=== PATIENT | female | born 1990 | race Caucasian/White ===

== ENCOUNTER 2016-08-17 19:43 | Emergency (ER) | payer OTHER ==
[~2016-08-17] VITALS: Ht 165.1 cm; Wt 63.5 kg
[2016-08-17] MEDS ORDERED: INSUH10VL SC (19:54)
[2016-08-17] MEDS ORDERED: ORTHTAB5 PO (19:54)
[2016-08-17] MEDS ORDERED: INSULANT SC ×2 (19:54)
[2016-08-17 20:35] LABS: CONTROL LINE UCG INT CTR LINE PRESENT
[2016-08-17 20:35] LABS: BASO % 0.4 % (0.0-1.0); EOS # 0.1 K/mm3 (0.0-0.50); EOS % 0.9 % (0.0-3.0); LARGE UNSTAINED CELL # 0.1 K/mm3 (0.0-0.4); LYMPH # 2.4 K/mm3 (1.5-6.5); LYMPH % 19.4 % (24.0-44.0); MEAN CORPUSCULAR HEMOGLOBIN 28.3 pg (27.0-33.0); MEAN CORPUSCULAR VOLUME 85.9 fl (80.0-96.0); MONO # 0.6 K/mm3 (0.0-0.8); MONO % 5.2 % (0.0-5.0); NEUTROPHILS % 73.2 % (36.0-66.0); PLATELET COUNT, AUTOMATED 276 k/mm3 (150-450); RED CELL DISTRIBUTION WIDTH 12.1 % (11.5-14.5); WHITE BLOOD COUNT 12.3 K/mm3 (4.0-10.0)
[2016-08-17 20:49] LABS: ANION GAP 8 MEQ/L (8-16); BLOOD UREA NITROGEN 12 MG/DL (7-18); CALCIUM LEVEL 9.1 MG/DL (8.5-10.1); CARBON DIOXIDE LEVEL 31 MEQ/L (21-32); CHLORIDE LEVEL 101 MEQ/L (98-107); CREATININE FOR GFR 0.91 MG/DL (0.55-1.02); GLOMERULAR FILTRATION RATE > 60.0 (>60); GLUCOSE, FASTING 188 MG/DL (70-105); POTASSIUM SERUM 3.9 MEQ/L (3.5-5.1); SODIUM LEVEL 140 MEQ/L (136-145)
[2016-08-17] MEDS ORDERED: BACTRIM 160MG/800MG DS TAB PO ONE (21:00)
--- NOTE | 2016-08-17 21:40 | REPUSA ---
Clinical history: flank pain. Findings: The urinary bladder appears unremarkable. No urinary bladder masses are seen. The right kid aurelio measures 11.4 x 5.8 x 4.4 cm. The left kidney measures 10.6 x 4.8 x 6.3 cm. The kidneys demonstr ate normal echotexture and echogenicity. There is no evidence of hydronephrosis or nephrolithiasis. N o renal masses are seen. No free fluid is appreciated. Impression: Unremarkable ultrasound examination of the kidneys.
[2016-08-17] MEDS ORDERED: BACT800T5 PO (22:00)
[2016-08-17 22:12] VITALS: BP 132/71
== END 2016-08-17 22:15 | disposition home or self-care (01) ==
LOC: M ED 20:38
DX: N12 Tubulo-interstitial nephritis, not specified as acute or chronic (principal); E10.9 Type 1 diabetes mellitus without complications; Z79.4 Long term (current) use of insulin

== ENCOUNTER 2016-08-21 11:15 | Inpatient (IN) | payer OTHER ==
[~2016-08-21] VITALS: Ht 165.1 cm; Wt 59.0 kg
[2016-08-21] MEDS: ENOXAPARIN 40 MG/0.4 ML SYRINGE (J1650) SC SCH (09:00)
[2016-08-21] MEDS: PANTOPRAZOLE 40MG INJ (PROTONIX) (C9113) IV SCH (09:00)
[~2016-08-21 11:15] MED LIST: BACT800T5 PO; INSUH10VL SC; INSULANT SC; ORTHTAB5 PO
[2016-08-21] MEDS ORDERED: ONDANSETRON 4MG/2ML VIAL (J2405) IV ONE ×2 (12:15→13:15)
[2016-08-21] MEDS ORDERED: NS 1,000 ML IV ONE ×2 (12:15→14:00)
[2016-08-21 12:17] LABS: BASO % 0.1 % (0.0-1.0); EOS % 0.1 % (0.0-3.0); LARGE UNSTAINED CELL # 0.1 K/mm3 (0.0-0.4); LARGE UNSTAINED CELL % 0.7 % (0.0-4.0); LYMPH # 0.4 K/mm3 (1.5-6.5); LYMPH % 2.1 % (24.0-44.0); MEAN CORPUSCULAR HGB CONC 31.5 g/dl (32.0-36.5); MEAN CORPUSCULAR VOLUME 92.3 fl (80.0-96.0); MONO # 0.5 K/mm3 (0.0-0.8); MONO % 2.9 % (0.0-5.0); NEUTROPHILS # 17.2 K/mm3 (1.8-7.7); NEUTROPHILS % 94.1 % (36.0-66.0); PLATELET COUNT, AUTOMATED 280 k/mm3 (150-450); RED CELL DISTRIBUTION WIDTH 12.7 % (11.5-14.5); WHITE BLOOD COUNT 18.3 K/mm3 (4.0-10.0)
[2016-08-21 12:32] LABS: CONTROL LINE HCG INT CTR LINE PRESENT
[2016-08-21 12:38] LABS: ALBUMIN 3.4 GM/DL (3.2-5.2); ALBUMIN/GLOBULIN RATIO 0.55 (1.00-1.93); ALKALINE PHOSPHATASE 129 U/L (45-117); ALT/SGPT 18 U/L (12-78); AMYLASE 11 U/L (25-115); ANION GAP 23 MEQ/L (8-16); AST/SGOT 9 U/L (15-37); BILIRUBIN,DIRECT < 0.1 MG/DL (0.0-0.2); BILIRUBIN,TOTAL 0.5 MG/DL (0.2-1.0); BLOOD UREA NITROGEN 29 MG/DL (7-18); CALCIUM LEVEL 10.4 MG/DL (8.5-10.1); CARBON DIOXIDE LEVEL 9 MEQ/L (21-32); CHLORIDE LEVEL 95 MEQ/L (98-107); CREATININE FOR GFR 1.47 MG/DL (0.55-1.02); GLOMERULAR FILTRATION RATE 46.9 (>60); SODIUM LEVEL 127 MEQ/L (136-145); TOTAL PROTEIN 9.6 GM/DL (6.4-8.2)
[2016-08-21 12:45] LABS: GLUCOSE, FASTING 514 MG/DL (70-105)
[2016-08-21] MEDS ORDERED: INSULIN HUMAN REGULAR 100 UNITS in NS 99 ML IV SCH (12:52)
[2016-08-21 12:53] LABS: YEAST LIKE CELL URINE AUTO SMALL
[2016-08-21] MEDS ORDERED: INSULIN IV RATE CHANGE DOCUMENTATION ML/HR XX SCH (13:00)
[2016-08-21] MEDS ORDERED: HumuLIN R (REGULAR) INSULIN (NovoLIN R) **100U/ML** PER UNIT IV ONE (13:00)
--- NOTE | 2016-08-21 13:30 | REP ---
Portable chest: Single view. History: Than a ketoacidosis. Comparison study: No comparison study. Findings: The lungs are well inflated and clear. Pleural angles are sharp. Heart size is normal. Pulmonary vasculature is not increased. No significant bony abnormality. Impression: No active disease. Signed by Wilmer Nelson MD 08/21/2016 01:22 P
--- NOTE | 2016-08-21 13:55 | REP ---
CT STUDY ABDOMEN PELVIS WITHOUT IV OR ORAL CONTRAST: HISTORY: Abdominal pain, diabetic ketoacidosis. Right-sided abdominal pain. Comparison renal sonography August 17, 2016 showed no abnormality. FINDINGS: Digital scout sniper radiograph shows an unremarkable bowel gas pattern. The lung bases are clear. The liver and spleen are normal in size homogeneous in texture. Gallbladder and pancreas are unremarkable. No adrenal lesion is seen. The right kidney appears slightly swollen and there is some thickening in Gerota's fascia on the right consistent with perinephric edema. No hydronephrosis is seen. No ureteral or intrarenal calculus is observed. Changes raise the question of a right-sided pyelonephritis. Small and large intestinal bowel loops are normal. Normal caliber aorta is seen. No retroperitoneal mass or adenopathy is seen. The appendix is not confidently identified but there is no inflammatory change to suggest appendicitis adjacent to the cecum. Small and large bowel loops are otherwise unremarkable. There is a 2.7 cm cystic area in the left ovary. Urinary bladder is unremarkable. No abdominal wall defect is seen. No bony destructive lesion seen. IMPRESSION: Subtle swelling right kidney perinephric stranding question pyelonephritis. No calculus or obstruction seen. Signed by Wilmer Nelson MD 08/21/2016 04:47 P
[2016-08-21] MEDS ORDERED: IBUP200C PO (13:57)
[2016-08-21] MEDS ORDERED: NITR100C2 PO (13:58)
[2016-08-21] MEDS ORDERED: MACR100C3 PO (13:58)
[2016-08-21 14:04] VITALS: BP 133/71
[2016-08-21] MEDS: NS 1,000 ML IV SCH ×2 (14:35→22:33)
[2016-08-21 14:38] VITALS: BP 131/67
[2016-08-21] MEDS ORDERED: ONDANSETRON 4 MG TAB (S0181) PO PRN (14:45)
[2016-08-21] MEDS: INSULIN HUMAN REGULAR 100 UNITS in NS 99 ML IV SCH (14:52)
[2016-08-21 14:58] VITALS: BP 134/73
--- NOTE | 2016-08-21 15:31 | HPEPDOC ---
Medical History and Physical Date of Admission Aug 21, 2016 at 13:56 History and Physical ATTENDING: Dr. Curry PCP: Claudia CC: Vomiting HPI: 25yoF with a past medical history significant for IDDM, seen in ED 08/17/16 and treated for pyelonephritis with oral Bactrim. She was subsequently changed to oral Macrobid related to sensitivity results. Pt states has had vomiting and excessive thirst yesterday and today. She states she has been drinking a lot. She has felt generally fatigued. She states she checked her blood sugar once yesterday and reports it was 197. She reports right sided abdominal discomfort and right-sided flank discomfort. She denies dysuria, hematuria, some frequency and urgency. Denies any fevers, chills, SOLIS, CP, SOB, cough, palpitations, N/V/D or changes in bowel or bladder habits. Upon presentation to the hospital the patient was found to have DKA likely secondary to pyelonephritis, thus the hospitalist team was consulted. PMHx: IDDM PSHX: Denies SOCHX: Resides in: [facility] Marital Status: Kids: None Employment: Unemployed Tobacco use: Denies ETOH: Denies Illicit Drugs: Denies Recent travel: Denies Advanced directives: None FAMHX: Mother: Alive, well Father: Alive, well Siblings: One brother Alive, well Children: None Unexpected deaths due to medical reasons: None. ROS: As noted in HPI, otherwise 11pt ROS of systems reviewed and unremarkable. PE: GEN: 25yoF, appears stated age. ill appearing. Alert and oriented x 3. Pleasant , interactive. HEENT: Normocephalic, atraumatic. Pupils are equal, round, and reactive to light. Extraocular movements are intact. No nystagmus appreciated. Sclera are nonicteric. Conjunctiva without injection. Nose midline. Nasal turbinates without bogginess. EACs both patent BL. TMs both visualized and durand with good cone of light, no bulging or erythema. No facial asymmetry. Dry mucous membranes. Dentition fair. Pharynx pink and dry. Neck supple, trachea midline. No lymphadenopathy or thyromegaly appreciated. CHEST: Regular rate and rhythm, +S1, +S2 LUNGS: Clear to auscultation bilaterally. No wheezes, rales, or rhonchi. Breathing appears symmetric and easy. Patient is speaking in full sentences. No accessory muscle use. ABD: Flat, soft, TTP RLQ, non-distended. +Bowel sounds throughout. No rebound or guarding. Right costovertebral angle tenderness. EXT: Pulses 2+ bilaterally dorsalis pedis and radial. No lower extremity edema appreciated. SKIN: [place], dry, warm. Capillary refill <2sec. No rashes. NEURO: Alert and oriented x 3. Cranial nerves III-XII are intact. No focal deficits appreciated. CXR: No active disease. Renal U/S 08/17/16 Unremarkable ultrasound examination of the kidneys CT: Abdomen and pelvis Subtle swelling right kidney perinephric stranding question pyelonephritis. No calculus or obstruction seen. BLOOD CULTURES: Pending Urine culture pending Urine culture from 08/19/16 indicates Escherichia coli A&P: 25yoF with a past medical history significant for IDDM, seen in ED and treated for pyelonephritis with oral Bactrim. She was subsequently changed to oral Macrobid related to sensitivity results. Pt states has had vomiting and excessive thirst yesterday and today. She states she has been drinking a lot. She has felt generally fatigued. The patient will be admitted to ICU for at least [address] Curry's service. 1. DKA. Likely secondary to pyelonephritis. ICU admission. IV fluid bolus in ED. IV fluids at 150 mL per hour. IV Insulin. BMP Q2hr, Monitor mag/Phos. Cardiac markers pending. 2. Pyelonephritis. CT indicates no calculus or obstruction. Urine culture from indicates Escherichia coli. This is sensitive to Rocephin therefore Rocephin 1 g IV every 24 hours has been ordered. Urine culture pending. Blood culture 2 pending. IV fluids as above. Repeat lactic acid pending. 3. N/V. Zofran prn. 4. IDDM. Hgb A1c 9.2. DVT prophylaxis. Lovenox The patient is a Full code. Vital Signs Vital Signs Date Time Temp Pulse Resp B/P Pulse Ox O2 Delivery O2 Flow Rate FiO2 08/21/16 14:54 99.0 20 08/21/16 14:45 106 99 08/21/16 14:38 131/67 08/21/16 11:15 Room Air Laboratory Data Labs 24H Laboratory Tests 2 08/21/16 12:06: Aspartate Amino Transf (AST/SGOT) 9L, Alanine Aminotransferase (ALT/SGPT) 18, Alkaline Phosphatase 129H, Total Bilirubin 0.5, Direct Bilirubin < 0.1, Albumin 3.4, Albumin/Globulin Ratio 0.55L, Amylase Level 11L, Anion Gap 23H, White Blood Count 18.3H, Red Blood Count 4.93, Hemoglobin 14.3, Hematocrit 45.5, Mean Corpuscular Volume 92.3, Mean Corpuscular Hemoglobin 29.0, Mean Corpuscular Hemoglobin Concent 31.5L, Red Cell Distribution Width 12.7, Platelet Count 280, Neutrophils (%) (Auto) 94.1H, Lymphocytes (%) (Auto) 2.1L, Monocytes (%) (Auto) 2.9, Eosinophils (%) (Auto) 0.1, Basophils (%) (Auto) 0.1, Neutrophils # (Auto) 17.2H, Lymphocytes # (Auto) 0.4L, Monocytes # (Auto) 0.5, Eosinophils # (Auto) 0.0, Basophils # (Auto) 0.0, Calcium Level 10.4H, Estimated Mean Plasma Glucose 217H, Glomerular Filtration Rate 46.9L, Hemoglobin A1c 9.2H, Human Chorionic Gonadotropin, Qual NEGATIVE, Lactic Acid Level 2.5*H, Large Unclassified Cells # 0.1, Large Unclassified Cells % 0.7, Lipase 56L, Total Protein 9.6H 08/21/16 12:28: Urine Amorphous Sediment SMALLH, Urine Appearance HAZY, Urine Color STRAW, Urine pH 5.0, Urine Specific [place] 1.022, Urine Protein 1+H, Urine Glucose (UA ) 3+H, Urine Ketones 2+H, Urine Urobilinogen 0.2, Urine Bilirubin NEGATIVE, Urine Leukocyte Esterase NEGATIVE, Urine Bacteria (Auto) 3+H, Urine Blood 1+H, Urine Calcium Carbonate Cryst(Auto) , Urine Calcium Oxalate Cryst (Auto) , Urine Calcium Phosphate Hannah (Auto) , Urine Cellular Casts , Urine Cystine Crystals , Urine Granular Casts (Auto) , Urine Hyaline Casts (Auto) 0, Urine Leucine Crystals , Urine Mucus (Auto) SMALL, Urine Nitrite NEGATIVE, Urine Oval Fat Bodies (Auto) , Urine RBC (Auto) 10H, Urine Renal Epithelial Cells , Urine Sperm (Auto) , Urine Squamous Epithelial Cells 1, Urine Transitional Epithelial Cells , Urine Trichomonas (Auto) , Urine Triple Phosphate Cryst (Auto) , Urine Tyrosine Crystals , Urine Uric Acid Crystals (Auto) , Urine WBC (Auto) 8H, Urine Waxy Casts (Auto) , Urine Yeast-Like Cells (Auto) SMALLH 08/21/16 14:30: Bedside Glucose (Misc Panel) 439H 08/21/16 14:57: CBC/BMP Laboratory Tests 08/21/16 12:06 Red Blood Count 4.93, Mean Corpuscular Volume 92.3, Mean Corpuscular Hemoglobin 29.0, Mean Corpuscular Hemoglobin Concent 31.5 L, Red Cell Distribution Width 12.7, Neutrophils (%) (Auto) 94.1 H, Lymphocytes (%) (Auto) 2.1 L, Monocytes (% ) (Auto) 2.9, Eosinophils (%) (Auto) 0.1, Basophils (%) (Auto) 0.1, Neutrophils # (Auto) 17.2 H, Lymphocytes # (Auto) 0.4 L, Monocytes # (Auto) 0.5, Eosinophils # (Auto) 0.0, Basophils # (Auto) 0.0 Microbiology Microbiology 08/21/16 Blood Culture, Received Pending 08/21/16 Blood Culture, Received Pending 08/21/16 Urine Culture, Received Pending Home Medications Scheduled (Ortho Tri-Cyclen 0.18/0.215/0.25 mg-35 Mcg) 1 Tab Tab 1 TAB PO QHS Insulin Aspart (Novolog) 100 U/Ml Inj 1 DOSE SC ACHS Insulin Glargine (Lantus) 1 Units/0.01 Ml Susp 20 UNITS SC QAM Insulin Glargine (Lantus) 1 Units/0.01 Ml Susp 15 UNITS SC QHS Nitrofurantoin Monohydrate Mac (Macrobid) 100 Mg Cap 100 MG PO BID FILLED 08/19 FOR 10 DAY SUPPLY Scheduled PRN Ibuprofen (Ibuprofen) 200 Mg Cap 600 MG PO Q6H PRN PRN PAIN Allergies Coded Allergies: No Known Allergies (Unverified , 08/17/16) Adrianne Christine Aug 21, 2016 15:31
[2016-08-21 15:35] LABS: ANION GAP 19 MEQ/L (8-16); BLOOD UREA NITROGEN 26 MG/DL (7-18); CALCIUM LEVEL 7.8 MG/DL (8.5-10.1); CARBON DIOXIDE LEVEL 8 MEQ/L (21-32); CHLORIDE LEVEL 110 MEQ/L (98-107); CREATININE FOR GFR 1.11 MG/DL (0.55-1.02); GLOMERULAR FILTRATION RATE > 60.0 (>60); GLUCOSE, FASTING 386 MG/DL (70-105); MAGNESIUM LEVEL 2.2 MG/DL (1.8-2.4); PHOSPHORUS LEVEL 2.3 MG/DL (2.5-4.9); POTASSIUM SERUM 4.4 MEQ/L (3.5-5.1); SODIUM LEVEL 137 MEQ/L (136-145)
[2016-08-21] MEDS: cefTRIAXone SOD 1 GM in D5W MINI-BAG PLUS 50 ML IV SCH (16:16)
[2016-08-21 16:58] LABS: CALCIUM LEVEL 8.3 MG/DL (8.5-10.1); CREATININE FOR GFR 1.25 MG/DL (0.55-1.02); GLOMERULAR FILTRATION RATE 56.5 (>60); POTASSIUM SERUM 4.3 MEQ/L (3.5-5.1)
[2016-08-21 19:18] LABS: ANION GAP 15 MEQ/L (8-16); BLOOD UREA NITROGEN 23 MG/DL (7-18); CALCIUM LEVEL 8.3 MG/DL (8.5-10.1); CARBON DIOXIDE LEVEL 12 MEQ/L (21-32); CHLORIDE LEVEL 110 MEQ/L (98-107); CREATININE FOR GFR 1.16 MG/DL (0.55-1.02); GLOMERULAR FILTRATION RATE > 60.0 (>60); GLUCOSE, FASTING 292 MG/DL (70-105); POTASSIUM SERUM 4.2 MEQ/L (3.5-5.1); SODIUM LEVEL 137 MEQ/L (136-145)
[2016-08-21] MEDS: ACETAMINOPHEN TAB 650MG DOSE (2X325MG) PO PRN (20:04)
[2016-08-21 20:10] VITALS: BP 121/69
[2016-08-21 21:25] LABS: ANION GAP 12 MEQ/L (8-16); BLOOD UREA NITROGEN 23 MG/DL (7-18); CALCIUM LEVEL 8.4 MG/DL (8.5-10.1); CARBON DIOXIDE LEVEL 14 MEQ/L (21-32); CHLORIDE LEVEL 111 MEQ/L (98-107); CREATININE FOR GFR 1.14 MG/DL (0.55-1.02); GLOMERULAR FILTRATION RATE > 60.0 (>60); GLUCOSE, FASTING 276 MG/DL (70-105); POTASSIUM SERUM 4.2 MEQ/L (3.5-5.1); SODIUM LEVEL 137 MEQ/L (136-145)
[2016-08-21 22:55] LABS: ANION GAP 10 MEQ/L (8-16); BLOOD UREA NITROGEN 21 MG/DL (7-18); CALCIUM LEVEL 8.1 MG/DL (8.5-10.1); CARBON DIOXIDE LEVEL 16 MEQ/L (21-32); CHLORIDE LEVEL 111 MEQ/L (98-107); CREATININE FOR GFR 1.08 MG/DL (0.55-1.02); GLOMERULAR FILTRATION RATE > 60.0 (>60); GLUCOSE, FASTING 253 MG/DL (70-105); POTASSIUM SERUM 3.8 MEQ/L (3.5-5.1); SODIUM LEVEL 137 MEQ/L (136-145)
[2016-08-21] MEDS ORDERED: POTASSIUM PHOSPHATE INJ 15 MMOL in D5W 250 ML IV ONE (23:00)
[2016-08-21] MEDS ORDERED: POTASSIUM PHOSPHATE IV ONE (23:30)
[2016-08-21] MEDS ORDERED: NS IV ONE (23:30)
[2016-08-22 00:07] VITALS: BP 119/57
[2016-08-22 00:43] LABS: ANION GAP 14 MEQ/L (8-16); BLOOD UREA NITROGEN 22 MG/DL (7-18); CALCIUM LEVEL 8.6 MG/DL (8.5-10.1); CARBON DIOXIDE LEVEL 16 MEQ/L (21-32); CHLORIDE LEVEL 111 MEQ/L (98-107); CREATININE FOR GFR 1.02 MG/DL (0.55-1.02); GLOMERULAR FILTRATION RATE > 60.0 (>60); GLUCOSE, FASTING 230 MG/DL (70-105); POTASSIUM SERUM 3.7 MEQ/L (3.5-5.1); SODIUM LEVEL 141 MEQ/L (136-145)
[2016-08-22] MEDS: INSULIN HUMAN REGULAR 100 UNITS in NS 99 ML IV SCH (01:00)
[2016-08-22] MEDS: ACETAMINOPHEN TAB 650MG DOSE (2X325MG) PO PRN ×6 (02:49→20:15)
[2016-08-22 02:55] LABS: ANION GAP 11 MEQ/L (8-16); BLOOD UREA NITROGEN 20 MG/DL (7-18); CALCIUM LEVEL 8.5 MG/DL (8.5-10.1); CARBON DIOXIDE LEVEL 18 MEQ/L (21-32); CHLORIDE LEVEL 112 MEQ/L (98-107); CREATININE FOR GFR 0.96 MG/DL (0.55-1.02); GLOMERULAR FILTRATION RATE > 60.0 (>60); GLUCOSE, FASTING 205 MG/DL (70-105); POTASSIUM SERUM 3.7 MEQ/L (3.5-5.1); SODIUM LEVEL 141 MEQ/L (136-145)
[2016-08-22] MEDS ORDERED: D5W 1,000 ML IV SCH (02:59)
[2016-08-22] MEDS: INSULIN IV RATE CHANGE DOCUMENTATION ML/HR XX SCH ×4 (03:00→10:00)
[2016-08-22] MEDS: D5W/0.45% SODIUM CHLORIDE 1,000 ML IV SCH ×2 (03:25→12:10)
[2016-08-22 04:03] VITALS: BP 113/58
[2016-08-22 05:32] LABS: ANION GAP 10 MEQ/L (8-16); BLOOD UREA NITROGEN 19 MG/DL (7-18); CALCIUM LEVEL 7.8 MG/DL (8.5-10.1); CARBON DIOXIDE LEVEL 16 MEQ/L (21-32); CHLORIDE LEVEL 112 MEQ/L (98-107); CREATININE FOR GFR 0.88 MG/DL (0.55-1.02); GLOMERULAR FILTRATION RATE > 60.0 (>60); GLUCOSE, FASTING 264 MG/DL (70-105); POTASSIUM SERUM 3.5 MEQ/L (3.5-5.1); SODIUM LEVEL 138 MEQ/L (136-145)
[2016-08-22 05:37] LABS: ANION GAP 11 MEQ/L (8-16); BLOOD UREA NITROGEN 18 MG/DL (7-18); CALCIUM LEVEL 7.8 MG/DL (8.5-10.1); CARBON DIOXIDE LEVEL 17 MEQ/L (21-32); CHLORIDE LEVEL 112 MEQ/L (98-107); GLUCOSE, FASTING 260 MG/DL (70-105); POTASSIUM SERUM 3.6 MEQ/L (3.5-5.1); SODIUM LEVEL 140 MEQ/L (136-145)
[2016-08-22 05:38] LABS: CREATININE FOR GFR 0.85 MG/DL (0.55-1.02); GLOMERULAR FILTRATION RATE > 60.0 (>60)
[2016-08-22 06:07] LABS: MAGNESIUM LEVEL 1.9 MG/DL (1.8-2.4); PHOSPHORUS LEVEL 1.8 MG/DL (2.5-4.9)
[2016-08-22 08:00] VITALS: BP 116/65
[2016-08-22] MEDS: ENOXAPARIN 40 MG/0.4 ML SYRINGE (J1650) SC SCH (08:15)
[2016-08-22] MEDS: PANTOPRAZOLE 40MG INJ (PROTONIX) (C9113) IV SCH (08:16)
[2016-08-22 09:25] LABS: ANION GAP 8 MEQ/L (8-16); BLOOD UREA NITROGEN 16 MG/DL (7-18); CALCIUM LEVEL 8.1 MG/DL (8.5-10.1); CARBON DIOXIDE LEVEL 19 MEQ/L (21-32); CHLORIDE LEVEL 111 MEQ/L (98-107); CREATININE FOR GFR 0.77 MG/DL (0.55-1.02); GLOMERULAR FILTRATION RATE > 60.0 (>60); GLUCOSE, FASTING 277 MG/DL (70-105); POTASSIUM SERUM 3.5 MEQ/L (3.5-5.1); SODIUM LEVEL 138 MEQ/L (136-145)
[2016-08-22 11:04] LABS: ANION GAP 9 MEQ/L (8-16); BLOOD UREA NITROGEN 16 MG/DL (7-18); CALCIUM LEVEL 8.7 MG/DL (8.5-10.1); CARBON DIOXIDE LEVEL 23 MEQ/L (21-32); CHLORIDE LEVEL 109 MEQ/L (98-107); CREATININE FOR GFR 0.84 MG/DL (0.55-1.02); GLOMERULAR FILTRATION RATE > 60.0 (>60); GLUCOSE, FASTING 263 MG/DL (70-105); POTASSIUM SERUM 3.3 MEQ/L (3.5-5.1); SODIUM LEVEL 141 MEQ/L (136-145)
[2016-08-22] MEDS ORDERED: POTASSIUM CHLORIDE 10 MEQ SR TABLET PO ONE (11:45)
[2016-08-22] MEDS ORDERED: DEXTROSE 50% 50 ML SYRINGE IV PRN (11:45)
[2016-08-22] MEDS ORDERED: FLUCONAZOLE 100 MG TAB PO ONE (11:45)
[2016-08-22] MEDS ORDERED: GLUCOSE 4 GM CHEW TABLET PO PRN (11:45)
[2016-08-22] MEDS ORDERED: GLUCAGON FOR INJ 1 MG VIAL (J1610) SC PRN (11:45)
[2016-08-22 12:00] VITALS: BP 110/72
[2016-08-22] MEDS: LEVEMIR (INSULIN DETEMIR) 1 UNITS/0.01ML SC SCH ×2 (12:02→21:13)
[2016-08-22 13:24] LABS: ANION GAP 10 MEQ/L (8-16); BLOOD UREA NITROGEN 14 MG/DL (7-18); CALCIUM LEVEL 8.4 MG/DL (8.5-10.1); CARBON DIOXIDE LEVEL 20 MEQ/L (21-32); CHLORIDE LEVEL 107 MEQ/L (98-107); GLOMERULAR FILTRATION RATE > 60.0 (>60); GLUCOSE, FASTING 262 MG/DL (70-105); POTASSIUM SERUM 3.7 MEQ/L (3.5-5.1); SODIUM LEVEL 137 MEQ/L (136-145)
--- NOTE | 2016-08-22 13:27 | IPNPDOC ---
Date Seen The patient was seen on 08/22/16. Progress Note Hospitalist Progress Note Subjective: Patient states that she feels much better. She still has some abdominal and back pain, but nothing like yesterday. Objective: Physical Exam: Vitals: Vital Sign - Last 24 Hours 08/21/16 08/21/16 08/21/16 08/21/16 14:04 14:04 14:15 14:38 Pulse 112 114 B/P 133/71 133/71 131/67 Pulse Ox 99 99 08/21/16 08/21/16 08/21/16 08/21/16 14:38 14:45 14:54 14:58 Temp 99.0 98.2 Pulse 114 106 102 Resp 20 16 B/P 131/67 134/73 Pulse Ox 99 99 100 08/21/16 08/21/16 08/21/16 08/21/16 20:00 20:10 21:05 22:00 Temp 101.2 100.5 99.7 Pulse 90 Resp 14 14 B/P 121/69 Pulse Ox 99 99 O2 Delivery Room Air 08/22/16 08/22/16 08/22/16 08/22/16 00:07 01:05 02:07 03:05 Temp 102.2 102.2 101.3 100.8 Pulse 106 Resp 28 B/P 119/57 Pulse Ox 97 O2 Delivery Room Air 08/22/16 08/22/16 08/22/16 08/22/16 04:03 05:04 06:11 08:00 Temp 99.4 98.7 98.8 Pulse 94 Resp 16 B/P 113/58 Pulse Ox 96 O2 Delivery Room Air Room Air General: Awake, alert, no acute distress HEENT: Normocephalic, atraumatic, extraocular movements intact CV: Regular rate and rhythm, no murmurs rubs or gallops Lungs: Clear to auscultation bilaterally Abd: Positive bowel sounds, soft, nondistended, tenderness to palpation of the right upper quadrant and right CVA area Extremities: No edema of the bilateral lower extremities Neuro: Alert and oriented 3, normal speech Psych: Normal Mood and affect Labs and Imaging: Laboratory Tests 08/21/16 14:57 Calcium Level 7.8 #L, Phosphorus Level 2.3 L, Total Creatine Kinase 18 L 08/21/16 16:22 Calcium Level 8.3 L 08/21/16 18:37 Calcium Level 8.3 L 08/21/16 20:42 Calcium Level 8.4 L 08/21/16 22:22 Calcium Level 8.1 L, Total Creatine Kinase 22 L 08/22/16 00:24 Calcium Level 8.6 08/22/16 02:29 Calcium Level 8.5 08/22/16 04:46 Calcium Level 7.8 L 08/22/16 04:47 Calcium Level 7.8 L, Phosphorus Level 1.8 #L, Total Creatine Kinase 21 L 08/22/16 08:25 Calcium Level 8.1 L 08/22/16 10:35 Calcium Level 8.7 08/22/16 12:30 Calcium Level 8.4 L Assessment and Plan: 25-year-old female with type 1 diabetes mellitus who was recently treated outpatient for a UTI. She has been admitted with DKA secondary to pyelonephritis. 1. DKA, history of diabetes mellitus type 1: DKA is now resolved, as is her associated pseudohyponatremia and acute kidney injury. We will start the patient back on her home long-acting insulin, which is Lantus 20 units in the morning and 15 units at night. She will also be on sliding scale insulin and a consistent carb diet. A1c is 9.2, and the patient states that this is the first time she has ever had DKA. 2. Pyelonephritis: Patient was febrile to 102.2 overnight. Initial white count was 18.3. Blood and urine cultures are pending, and CT of the abdomen and pelvis shows a likely right pyelonephritis. At this time, we will continue Rocephin. The patient was initially on Bactrim outpatient, but had been changed to Macrobid secondary to sensitivity results. The initial urine culture in the ER on 08/17 showed Escherichia coli resistant to Bactrim, but sensitive to Macrobid, Rocephin, Levaquin, and Zosyn. Continue IV fluids. DVT prophylaxis: Lovenox Dispo: pending resolution of fevers, and blood culture results VS, I&O, 24H, Fishbone Vital Signs/I&O Vital Signs Date Time Temp Pulse Resp B/P Pulse Ox O2 Delivery O2 Flow Rate FiO2 08/22/16 08:00 Room Air 08/22/16 06:11 98.8 08/22/16 04:03 94 16 113/58 96 I&O- Last 24 Hours up to 6 AM 08/22/16 05:59 Intake Total 4019 ml Balance 4019 ml Laboratory Data 24H LABS Laboratory Tests 2 08/21/16 14:30: Bedside Glucose (Misc Panel) 439H 08/21/16 14:57: Anion Gap 19H, Blood Urea Nitrogen 26H, Creatinine 1.11H, Sodium Level 137#, Potassium Level 4.4, Chloride Level 110H, Carbon Dioxide Level 8L, Calcium Level 7.8#L, Phosphorus Level 2.3L, Total Creatine Kinase 18L, Creatine Kinase MB 1.0, Creatine Kinase MB Relative Index 5.55H, Glomerular Filtration Rate > 60.0, Magnesium Level 2.2, Troponin I < 0.02 08/21/16 15:32: Bedside Glucose (Misc Panel) 425H 08/21/16 16:22: Bedside Glucose (Misc Panel) 296H, Anion Gap 14, Blood Urea Nitrogen 25H, Creatinine 1.25H, Sodium Level 137, Potassium Level 4.3, Chloride Level 110H, Carbon Dioxide Level 13L, Calcium Level 8.3L, Glomerular Filtration Rate 56.5L, Lactic Acid Followup at 4 Hours 1.6 08/21/16 17:24: Bedside Glucose (Misc Panel) 308H 08/21/16 18:35: Bedside Glucose (Misc Panel) 296H 08/21/16 18:37: Anion Gap 15, Blood Urea Nitrogen 23H, Creatinine 1.16H, Sodium Level 137, Potassium Level 4.2, Chloride Level 110H, Carbon Dioxide Level 12L, Calcium Level 8.3L, Glomerular Filtration Rate > 60.0 08/21/16 20:02: Bedside Glucose (Misc Panel) 293H 08/21/16 20:42: Anion Gap 12, Blood Urea Nitrogen 23H, Creatinine 1.14H, Sodium Level 137, Potassium Level 4.2, Chloride Level 111H, Carbon Dioxide Level 14L, Calcium Level 8.4L, Glomerular Filtration Rate > 60.0 08/21/16 21:02: Bedside Glucose (Misc Panel) 282H 08/21/16 22:01: Bedside Glucose (Misc Panel) 270H 08/21/16 22:22: Anion Gap 10, Blood Urea Nitrogen 21H, Creatinine 1.08H, Sodium Level 137, Potassium Level 3.8, Chloride Level 111H, Carbon Dioxide Level 16L, Calcium Level 8.1L, Glomerular Filtration Rate > 60.0, Total Creatine Kinase 22L, Creatine Kinase MB 1.0, Creatine Kinase MB Relative Index 4.54H, Troponin I < 0.02 08/21/16 23:01: Bedside Glucose (Misc Panel) 262H 08/22/16 00:06: Bedside Glucose (Misc Panel) 232H 08/22/16 00:24: Anion Gap 14, Blood Urea Nitrogen 22H, Creatinine 1.02, Sodium Level 141, Potassium Level 3.7, Chloride Level 111H, Carbon Dioxide Level 16L, Calcium Level 8.6, Glomerular Filtration Rate > 60.0 08/22/16 01:01: Bedside Glucose (Misc Panel) 232H 08/22/16 02:01: Bedside Glucose (Misc Panel) 201H 08/22/16 02:29: Anion Gap 11, Blood Urea Nitrogen 20H, Creatinine 0.96, Sodium Level 141, Potassium Level 3.7, Chloride Level 112H, Carbon Dioxide Level 18L, Calcium Level 8.5, Glomerular Filtration Rate > 60.0 08/22/16 03:03: Bedside Glucose (Misc Panel) 199H 08/22/16 04:02: Bedside Glucose (Misc Panel) 213H 08/22/16 04:46: Anion Gap 10, Blood Urea Nitrogen 19H, Creatinine 0.88, Sodium Level 138, Potassium Level 3.5, Chloride Level 112H, Carbon Dioxide Level 16L, Calcium Level 7.8L, Glomerular Filtration Rate > 60.0 08/22/16 04:47: Anion Gap 11, Blood Urea Nitrogen 18, Creatinine 0.85, Sodium Level 140, Potassium Level 3.6, Chloride Level 112H, Carbon Dioxide Level 17L, Calcium Level 7.8L, Glomerular Filtration Rate > 60.0, Phosphorus Level 1.8#L, Total Creatine Kinase 21L, Creatine Kinase MB 1.0, Creatine Kinase MB Relative Index 4.76H, Magnesium Level 1.9, Troponin I < 0.02 08/22/16 05:01: Bedside Glucose (Misc Panel) 277H 08/22/16 06:04: Bedside Glucose (Misc Panel) 258H 08/22/16 06:58: Bedside Glucose (Misc Panel) 261H 08/22/16 07:48: Bedside Glucose (Misc Panel) 298H 08/22/16 08:25: Anion Gap 8, Blood Urea Nitrogen 16, Creatinine 0.77, Sodium Level 138, Potassium Level 3.5, Chloride Level 111H, Carbon Dioxide Level 19L, Calcium Level 8.1L, Glomerular Filtration Rate > 60.0 08/22/16 09:01: Bedside Glucose (Misc Panel) 314H 08/22/16 10:06: Bedside Glucose (Misc Panel) 259H 08/22/16 10:35: Anion Gap 9, Blood Urea Nitrogen 16, Creatinine 0.84, Sodium Level 141, Potassium Level 3.3L, Chloride Level 109H, Carbon Dioxide Level 23, Calcium Level 8.7, Glomerular Filtration Rate > 60.0 08/22/16 11:05: Bedside Glucose (Misc Panel) 244H 08/22/16 12:05: Bedside Glucose (Misc Panel) 223H 08/22/16 12:30: Anion Gap 10, Blood Urea Nitrogen 14, Creatinine 0.70, Sodium Level 137, Potassium Level 3.7, Chloride Level 107, Carbon Dioxide Level 20L, Calcium Level 8.4L, Glomerular Filtration Rate > 60.0 CBC/BMP Laboratory Tests 08/21/16 14:57 Calcium Level 7.8 #L, Phosphorus Level 2.3 L, Total Creatine Kinase 18 L 08/21/16 16:22 Calcium Level 8.3 L 08/21/16 18:37 Calcium Level 8.3 L 08/21/16 20:42 Calcium Level 8.4 L 08/21/16 22:22 Calcium Level 8.1 L, Total Creatine Kinase 22 L 08/22/16 00:24 Calcium Level 8.6 08/22/16 02:29 Calcium Level 8.5 08/22/16 04:46 Calcium Level 7.8 L 08/22/16 04:47 Calcium Level 7.8 L, Phosphorus Level 1.8 #L, Total Creatine Kinase 21 L 08/22/16 08:25 Calcium Level 8.1 L 08/22/16 10:35 Calcium Level 8.7 08/22/16 12:30 Calcium Level 8.4 L Microbiology Microbiology 08/21/16 Blood Culture - Preliminary, Resulted No growth after 24 hours . All specim... 08/21/16 Blood Culture - Preliminary, Resulted No growth after 24 hours . All specim... 08/21/16 Urine Culture - Final, Complete Yeast Like Organism LEXUS MORGAN Aug 22, 2016 13:26
[2016-08-22] MEDS: NS 1,000 ML IV SCH ×2 (13:36→23:30)
[2016-08-22 16:00] VITALS: BP 122/71
[2016-08-22] MEDS: cefTRIAXone SOD 1 GM in D5W MINI-BAG PLUS 50 ML IV SCH (16:07)
[2016-08-22] MEDS: HumaLOG INSULIN (NovoLOG) PER UNIT SC SCH ×2 (17:23→21:00)
[2016-08-22 20:00] VITALS: BP 119/73
[2016-08-23] VITALS: BP 117/66
[2016-08-23] MEDS: ACETAMINOPHEN TAB 650MG DOSE (2X325MG) PO PRN ×6 (00:15→23:01)
[2016-08-23 04:00] VITALS: BP 119/68
[2016-08-23 04:34] LABS: BASO % 0.2 % (0.0-1.0); EOS # 0.1 K/mm3 (0.0-0.50); EOS % 0.7 % (0.0-3.0); LARGE UNSTAINED CELL # 0.2 K/mm3 (0.0-0.4); LARGE UNSTAINED CELL % 2.2 % (0.0-4.0); LYMPH # 0.8 K/mm3 (1.5-6.5); LYMPH % 8.6 % (24.0-44.0); MEAN CORPUSCULAR HGB CONC 34.1 g/dl (32.0-36.5); MONO # 0.5 K/mm3 (0.0-0.8); MONO % 5.2 % (0.0-5.0); NEUTROPHILS # 8.1 K/mm3 (1.8-7.7); NEUTROPHILS % 83.1 % (36.0-66.0); PLATELET COUNT, AUTOMATED 185 k/mm3 (150-450); RED CELL DISTRIBUTION WIDTH 12.6 % (11.5-14.5); WHITE BLOOD COUNT 9.7 K/mm3 (4.0-10.0)
[2016-08-23 04:50] LABS: ANION GAP 8 MEQ/L (8-16); BLOOD UREA NITROGEN 9 MG/DL (7-18); CALCIUM LEVEL 7.9 MG/DL (8.5-10.1); CARBON DIOXIDE LEVEL 23 MEQ/L (21-32); CHLORIDE LEVEL 106 MEQ/L (98-107); GLOMERULAR FILTRATION RATE > 60.0 (>60); GLUCOSE, FASTING 148 MG/DL (70-105); MAGNESIUM LEVEL 1.6 MG/DL (1.8-2.4); POTASSIUM SERUM 3.3 MEQ/L (3.5-5.1); SODIUM LEVEL 137 MEQ/L (136-145)
[2016-08-23] MEDS ORDERED: POTASSIUM CHLORIDE 10 MEQ SR TABLET PO ONE (07:00)
[2016-08-23] MEDS: HumaLOG INSULIN (NovoLOG) PER UNIT SC SCH ×4 (07:34→21:00)
[2016-08-23] MEDS: MAG SULF 1GM/100ML (MAG RUN) 1 GM in APPROPRIATE DILUENT 1 EA IV SCH ×2 (07:35→08:44)
[2016-08-23 07:40] VITALS: BP 119/68
--- NOTE | 2016-08-23 08:21 | IPNPDOC ---
Date Seen The patient was seen on 08/23/16. Progress Note Hospitalist Progress Note Subjective: Patient states that she feels very well; only complaint is a little discomfort around her IV. Objective: Physical Exam: Vitals: Vital Sign - Last 24 Hours 08/22/16 08/22/16 08/22/16 08/22/16 12:00 12:00 16:00 16:00 Temp 98.9 99.0 Pulse 74 81 Resp 17 16 B/P 110/72 122/71 Pulse Ox 98 100 O2 Delivery Room Air Room Air 08/22/16 08/22/16 08/23/16 08/23/16 20:00 20:00 00:00 04:00 Temp 101.0 98.8 99.3 Pulse 86 81 83 Resp 30 30 30 B/P 119/73 117/66 119/68 Pulse Ox 99 97 100 O2 Delivery Room Air Room Air Room Air Room Air General: Awake, alert, no acute distress HEENT: Normocephalic, atraumatic, extraocular movements intact CV: Regular rate and rhythm Lungs: Clear to auscultation bilaterally, no wheeze Abd: Positive bowel sounds, soft, nondistended, tenderness to palpation of the right upper quadrant and right CVA area present but improved from yesterday Extremities: No edema of the bilateral lower extremities Neuro: Alert and oriented 3, normal speech Psych: Normal Mood and affect Labs and Imaging: Laboratory Tests 08/22/16 08:25 Calcium Level 8.1 L 08/22/16 10:35 Calcium Level 8.7 08/22/16 12:30 Calcium Level 8.4 L 08/23/16 04:19 Calcium Level 7.9 L, Red Blood Count 3.82 L, Mean Corpuscular Volume 85.0 #, Mean Corpuscular Hemoglobin 29.0, Mean Corpuscular Hemoglobin Concent 34.1, Red Cell Distribution Width 12.6, Neutrophils (%) (Auto) 83.1 H, Lymphocytes (%) ( Auto) 8.6 L, Monocytes (%) (Auto) 5.2 H, Eosinophils (%) (Auto) 0.7, Basophils ( %) (Auto) 0.2, Neutrophils # (Auto) 8.1 H, Lymphocytes # (Auto) 0.8 L, Monocytes # (Auto) 0.5, Eosinophils # (Auto) 0.1, Basophils # (Auto) 0.0 Assessment and Plan: 25-year-old female with type 1 diabetes mellitus who was recently treated outpatient for a UTI. She has been admitted with DKA secondary to pyelonephritis. 1. DKA, history of diabetes mellitus type 1: DKA is now resolved, as is her associated pseudohyponatremia and acute kidney injury. She is back on her home long-acting insulin, which is Lantus 20 units in the morning and 15 units at night. She will also be on sliding scale insulin and a consistent carb diet. A1c is 9.2, and the patient states that this is the first time she has ever had DKA. 2. Pyelonephritis: Patient was febrile to 101 overnight. Initial white count was 18.3 but it has now normalized. Blood cultures are pending, and CT of the abdomen and pelvis shows a likely right pyelonephritis. Ucx on this admission is growing yeast, so she has been started on diflucan. At this time, we will continue Rocephin. The patient was initially on Bactrim outpatient, but had been changed to Macrobid secondary to sensitivity results. The initial urine culture in the ER on 08/17 showed Escherichia coli resistant to Bactrim, but sensitive to Macrobid, Rocephin, Levaquin, and Zosyn. Stop IV fluids. DVT prophylaxis: Lovenox Dispo: pending resolution of fevers, and blood culture results; transfer to the floor VS, I&O, 24H, Fishbone Vital Signs/I&O Vital Signs Date Time Temp Pulse Resp B/P Pulse Ox O2 Delivery O2 Flow Rate FiO2 08/23/16 04:00 99.3 83 30 119/68 100 Room Air I&O- Last 24 Hours up to 6 AM 08/23/16 06:00 Intake Total 3763 ml Output Total 500 ml Balance 3263 ml Laboratory Data 24H LABS Laboratory Tests 2 08/22/16 08:25: Anion Gap 8, Blood Urea Nitrogen 16, Creatinine 0.77, Sodium Level 138, Potassium Level 3.5, Chloride Level 111H, Carbon Dioxide Level 19L, Calcium Level 8.1L, Glomerular Filtration Rate > 60.0 08/22/16 09:01: Bedside Glucose (Misc Panel) 314H 08/22/16 10:06: Bedside Glucose (Misc Panel) 259H 08/22/16 10:35: Anion Gap 9, Blood Urea Nitrogen 16, Creatinine 0.84, Sodium Level 141, Potassium Level 3.3L, Chloride Level 109H, Carbon Dioxide Level 23, Calcium Level 8.7, Glomerular Filtration Rate > 60.0 08/22/16 11:05: Bedside Glucose (Misc Panel) 244H 08/22/16 12:05: Bedside Glucose (Misc Panel) 223H 08/22/16 12:30: Anion Gap 10, Blood Urea Nitrogen 14, Creatinine 0.70, Sodium Level 137, Potassium Level 3.7, Chloride Level 107, Carbon Dioxide Level 20L, Calcium Level 8.4L, Glomerular Filtration Rate > 60.0 08/22/16 16:50: Bedside Glucose (Misc Panel) 304H 08/22/16 21:01: Bedside Glucose (Misc Panel) 235H 08/23/16 04:19: Anion Gap 8, White Blood Count 9.7, Red Blood Count 3.82L, Hemoglobin 11.1#L, Hematocrit 32.5L, Mean Corpuscular Volume 85.0#, Mean Corpuscular Hemoglobin 29.0, Mean Corpuscular Hemoglobin Concent 34.1, Red Cell Distribution Width 12.6 , Platelet Count 185, Neutrophils (%) (Auto) 83.1H, Lymphocytes (%) (Auto) 8.6L , Monocytes (%) (Auto) 5.2H, Eosinophils (%) (Auto) 0.7, Basophils (%) (Auto) 0.2, Neutrophils # (Auto) 8.1H, Lymphocytes # (Auto) 0.8L, Monocytes # (Auto) 0.5, Eosinophils # (Auto) 0.1, Basophils # (Auto) 0.0, Blood Urea Nitrogen 9, Creatinine 0.60, Sodium Level 137, Potassium Level 3.3L, Chloride Level 106, Carbon Dioxide Level 23, Calcium Level 7.9L, Glomerular Filtration Rate > 60.0, Large Unclassified Cells # 0.2, Large Unclassified Cells % 2.2, Magnesium Level 1.6L CBC/BMP Laboratory Tests 08/22/16 08:25 Calcium Level 8.1 L 08/22/16 10:35 Calcium Level 8.7 08/22/16 12:30 Calcium Level 8.4 L 08/23/16 04:19 Calcium Level 7.9 L, Red Blood Count 3.82 L, Mean Corpuscular Volume 85.0 #, Mean Corpuscular Hemoglobin 29.0, Mean Corpuscular Hemoglobin Concent 34.1, Red Cell Distribution Width 12.6, Neutrophils (%) (Auto) 83.1 H, Lymphocytes (%) ( Auto) 8.6 L, Monocytes (%) (Auto) 5.2 H, Eosinophils (%) (Auto) 0.7, Basophils ( %) (Auto) 0.2, Neutrophils # (Auto) 8.1 H, Lymphocytes # (Auto) 0.8 L, Monocytes # (Auto) 0.5, Eosinophils # (Auto) 0.1, Basophils # (Auto) 0.0 Microbiology Microbiology 08/21/16 Blood Culture - Preliminary, Resulted No growth after 24 hours . All specim... 08/21/16 Blood Culture - Preliminary, Resulted No growth after 24 hours . All specim... 08/21/16 Urine Culture - Final, Complete Yeast Like Organism LEXUS MORGAN Aug 23, 2016 08:21
[2016-08-23] MEDS: LEVEMIR (INSULIN DETEMIR) 1 UNITS/0.01ML SC SCH ×2 (08:44→21:19)
[2016-08-23] MEDS: ENOXAPARIN 40 MG/0.4 ML SYRINGE (J1650) SC SCH (08:44)
[2016-08-23] MEDS: FLUCONAZOLE 100 MG TAB PO SCH (08:44)
[2016-08-23] MEDS: PANTOPRAZOLE 40MG INJ (PROTONIX) (C9113) IV SCH (08:44)
[2016-08-23 11:25] VITALS: BP 128/67
[2016-08-23 16:00] VITALS: BP 121/76
[2016-08-23] MEDS: cefTRIAXone SOD 1 GM in D5W MINI-BAG PLUS 50 ML IV SCH (16:00)
[2016-08-23 19:37] VITALS: BP 128/70
[2016-08-24 00:05] VITALS: BP 125/71
[2016-08-24 04:37] VITALS: BP 118/67
[2016-08-24 06:27] LABS: BASO % 0.3 % (0.0-1.0); EOS # 0.1 K/mm3 (0.0-0.50); EOS % 0.8 % (0.0-3.0); LARGE UNSTAINED CELL # 0.3 K/mm3 (0.0-0.4); LARGE UNSTAINED CELL % 3.1 % (0.0-4.0); LYMPH % 12.2 % (24.0-44.0); MEAN CORPUSCULAR HEMOGLOBIN 31.3 pg (27.0-33.0); MEAN CORPUSCULAR HGB CONC 36.8 g/dl (32.0-36.5); MEAN CORPUSCULAR VOLUME 85.1 fl (80.0-96.0); MONO # 0.4 K/mm3 (0.0-0.8); MONO % 4.7 % (0.0-5.0); NEUTROPHILS # 6.4 K/mm3 (1.8-7.7); NEUTROPHILS % 78.8 % (36.0-66.0); PLATELET COUNT, AUTOMATED 215 k/mm3 (150-450); RED CELL DISTRIBUTION WIDTH 12.9 % (11.5-14.5); WHITE BLOOD COUNT 8.1 K/mm3 (4.0-10.0)
[2016-08-24] MEDS: ACETAMINOPHEN TAB 650MG DOSE (2X325MG) PO PRN (06:50)
[2016-08-24 07:04] LABS: ANION GAP 8 MEQ/L (8-16); BLOOD UREA NITROGEN 9 MG/DL (7-18); CALCIUM LEVEL 8.1 MG/DL (8.5-10.1); CARBON DIOXIDE LEVEL 27 MEQ/L (21-32); CHLORIDE LEVEL 103 MEQ/L (98-107); CREATININE FOR GFR 0.66 MG/DL (0.55-1.02); GLOMERULAR FILTRATION RATE > 60.0 (>60); GLUCOSE, FASTING 173 MG/DL (70-105); POTASSIUM SERUM 3.3 MEQ/L (3.5-5.1); SODIUM LEVEL 138 MEQ/L (136-145)
[2016-08-24 08:00] VITALS: BP 117/68
[2016-08-24] MEDS: PANTOPRAZOLE 40MG INJ (PROTONIX) (C9113) IV SCH (08:24)
[2016-08-24] MEDS: ENOXAPARIN 40 MG/0.4 ML SYRINGE (J1650) SC SCH (08:24)
[2016-08-24] MEDS: FLUCONAZOLE 100 MG TAB PO SCH (08:25)
[2016-08-24] MEDS: LEVEMIR (INSULIN DETEMIR) 1 UNITS/0.01ML SC SCH (08:25)
[2016-08-24] MEDS: HumaLOG INSULIN (NovoLOG) PER UNIT SC SCH ×2 (08:26→12:45)
[2016-08-24] MEDS ORDERED: POTASSIUM CHLORIDE 10 MEQ SR TABLET PO ONE (09:00)
[2016-08-24 12:00] VITALS: BP 118/70
[2016-08-24] MEDS ORDERED: FLUC10TA PO (12:52)
[2016-08-24] MEDS ORDERED: LEVA250T PO (12:52)
[2016-08-24] MEDS: cefTRIAXone SOD 1 GM in D5W MINI-BAG PLUS 50 ML IV SCH (12:53)
--- NOTE | 2016-08-24 16:38 | DS.PDOC ---
Discharge Summary General Date of Admission Aug 21, 2016 at 13:56 Date of Discharge 08/24/2016 Discharge Summary DATE OF ADMISSION: 08/21/2016 DATE OF DISCHARGE: 08/24/2016 PRIMARY CARE PHYSICIAN: Claudia laura DISCHARGE DIAGNOS(E)S: DKA Pyelonephritis Pseudohyponatremia Acute kidney injury HPI & HOSPITAL COURSE: 25-year-old female with type 1 diabetes mellitus who was recently treated outpatient for a UTI. She has been admitted with DKA secondary to pyelonephritis. 1. DKA, history of diabetes mellitus type 1: DKA is now resolved, as is her associated pseudohyponatremia and acute kidney injury. She is back on her home long-acting insulin, which is Lantus 20 units in the morning and 15 units at night. She will also be on sliding scale insulin and a consistent carb diet. A1c is 9.2, and the patient states that this is the first time she has ever had DKA. 2. Pyelonephritis: Patient has now been afebrile for 24 hours. Initial white count was 18.3 but it has now normalized. Blood cultures are negative, and CT of the abdomen and pelvis shows a likely right pyelonephritis. Ucx on this admission is growing yeast, so she has been started on diflucan. While in-house , she was on Rocephin. The patient was initially on Bactrim outpatient, but had been changed to Macrobid secondary to sensitivity results. The initial urine culture in the ER on 08/17 showed Escherichia coli resistant to Bactrim, but sensitive to Macrobid, Rocephin, Levaquin, and Zosyn. We will discharge her home on by mouth Levaquin, to complete a full 2 weeks of antibiotics. DVT prophylaxis: Lovenox PHYSICAL EXAMINATION ON DISCHARGE: VITAL SIGNS: Vital Signs Date Time Temp Pulse Resp B/P Pulse Ox O2 Delivery O2 Flow Rate FiO2 08/24/16 12:00 97.7 85 18 118/70 99 Room Air General: Awake, alert, no acute distress HEENT: Normocephalic, atraumatic, extraocular movements intact CV: Regular rate and rhythm Lungs: Clear to auscultation bilaterally, no wheeze Abd: Positive bowel sounds, soft, nondistended, tenderness to palpation of the right upper quadrant and right CVA area present but improved from yesterday Extremities: No edema of the bilateral lower extremities Neuro: Alert and oriented 3, normal speech Psych: Normal Mood and affect DISPOSITION: Home DISCHARGE INSTRUCTIONS: Follow-up with PCP within one week. If symptoms return, or if you experience worsening of your symptoms, please call your doctor or return to the emergency department. ITEMS THAT NEED OUTPATIENT FOLLOWUP: None Patient was seen and examined by me on the day of discharge, and I spent a total time of greater than 30 minutes on this discharge. Vital Signs/I&Os Vital Signs Date Time Temp Pulse Resp B/P Pulse Ox O2 Delivery O2 Flow Rate FiO2 08/24/16 12:00 97.7 85 18 118/70 99 Room Air I&O- Last 24 Hours up to 6 AM 08/24/16 06:00 Intake Total 530 ml Balance 530 ml Laboratory Data Labs 24H Laboratory Tests 2 08/23/16 17:24: Bedside Glucose (Misc Panel) 249H 08/23/16 21:11: Bedside Glucose (Misc Panel) 274H 08/24/16 06:15: Anion Gap 8, White Blood Count 8.1, Red Blood Count 3.72L, Hemoglobin 11.7L, Hematocrit 31.7L, Mean Corpuscular Volume 85.1, Mean Corpuscular Hemoglobin 31.3 , Mean Corpuscular Hemoglobin Concent 36.8H, Red Cell Distribution Width 12.9, Platelet Count 215, Neutrophils (%) (Auto) 78.8H, Lymphocytes (%) (Auto) 12.2L, Monocytes (%) (Auto) 4.7, Eosinophils (%) (Auto) 0.8, Basophils (%) (Auto) 0.3, Neutrophils # (Auto) 6.4, Lymphocytes # (Auto) 1.0L, Monocytes # (Auto) 0.4, Eosinophils # (Auto) 0.1, Basophils # (Auto) 0.0, Blood Urea Nitrogen 9, Creatinine 0.66, Sodium Level 138, Potassium Level 3.3L, Chloride Level 103, Carbon Dioxide Level 27, Calcium Level 8.1L, Glomerular Filtration Rate > 60.0, Large Unclassified Cells # 0.3, Large Unclassified Cells % 3.1, Magnesium Level 2.0 08/24/16 08:03: Bedside Glucose (Misc Panel) 170H 08/24/16 12:22: Bedside Glucose (Misc Panel) 282H CBC/BMP Laboratory Tests 08/24/16 06:15 Calcium Level 8.1 L, Red Blood Count 3.72 L, Mean Corpuscular Volume 85.1, Mean Corpuscular Hemoglobin 31.3, Mean Corpuscular Hemoglobin Concent 36.8 H, Red Cell Distribution Width 12.9, Neutrophils (%) (Auto) 78.8 H, Lymphocytes (%) ( Auto) 12.2 L, Monocytes (%) (Auto) 4.7, Eosinophils (%) (Auto) 0.8, Basophils (% ) (Auto) 0.3, Neutrophils # (Auto) 6.4, Lymphocytes # (Auto) 1.0 L, Monocytes # (Auto) 0.4, Eosinophils # (Auto) 0.1, Basophils # (Auto) 0.0 FSBS Laboratory Tests Test 08/23/16 17:24 08/23/16 21:11 08/24/16 08:03 08/24/16 12:22 Range/Units Bedside Glucose (Misc Panel) 249 274 170 282 70-105 MG/DL Microbiology Microbiology 08/21/16 Blood Culture - Preliminary, Resulted No Growth after 72 hours. All specime... 08/21/16 Blood Culture - Preliminary, Resulted No Growth after 72 hours. All specime... 08/21/16 Urine Culture - Final, Complete Yeast Like Organism Discharge Medications Scheduled (Ortho Tri-Cyclen 0.18/0.215/0.25 mg-35 Mcg) 1 Tab Tab 1 TAB PO QHS (Reported) Fluconazole (Diflucan) 100 Mg Tab 100 MG PO DAILY First dose on 08/25/16 Insulin Aspart (Novolog) 100 U/Ml Inj 1 DOSE SC ACHS (Reported) Insulin Glargine (Lantus) 1 Units/0.01 Ml Susp 20 UNITS SC QAM (Reported) Insulin Glargine (Lantus) 1 Units/0.01 Ml Susp 15 UNITS SC QHS (Reported) Levofloxacin Hemihydrate (Levaquin) 250 Mg Tab 250 MG PO DAILY First dose on 08/25/16 Scheduled PRN Ibuprofen (Ibuprofen) 200 Mg Cap 600 MG PO Q6H PRN PRN PAIN (Reported) Allergies Coded Allergies: No Known Allergies (Unverified , 08/17/16) LEXUS MORGAN Aug 24, 2016 16:38
== END 2016-08-24 14:00 | disposition home or self-care (01) | DRG 638 ==
LOC: M ED 12:30 → M ED INP 13:56 → M ICU 15:10 → M PED 08-23 11:20
PROVIDERS: ADMIT Internal Medicine; ATTEND Hospitalist
DX: E10.10 Type 1 diabetes mellitus with ketoacidosis without coma (principal); N10 Acute pyelonephritis; N17.9 Acute kidney failure, unspecified; E87.1 Hypo-osmolality and hyponatremia; B96.20 Unspecified Escherichia coli [E. coli] as the cause of diseases classified elsewhere; Z79.4 Long term (current) use of insulin